=== PATIENT | female | born 1965 | race Caucasian/White ===

== ENCOUNTER 2023-11-03 22:58 | Emergency (ER) | payer OTHER, SELFPAY ==
[2023-11-03 23:00] VITALS: BP 148/103; PULSE 92; RESP 20; TEMP 36.1; O2SAT 96
[2023-11-04 02:46] VITALS: BP 133/92; PULSE 89; RESP 18; TEMP 37; O2SAT 97
--- NOTE | 2023-11-04 03:20 | ED.ANIMALBIT ---
HPI - Animal Bite General Chief Complaint: Animal Bite Stated Complaint: dog bite Time Seen by Provider: 11/04/23 03:12 History of Present Illness HPI narrative: Patient is a 58-year-old female who presents to the emergency department this evening complaining of a dog bite to her right forearm. Patient admits that the dog is her dog and he is up-to-date with all immunizations. Patient initially stated that she was up-to-date with her tetanus shot but now cannot remember when her last tetanus shot was. She denies any fevers or chills at home and denies any additional injuries. Wound is superficial with multiple skin tears and abrasions, no deep wounds. No additional symptoms or concerns at this time. Related Data Allergies Allergy/AdvReac Type Severity Reaction Status Date / Time ibuprofen [From Motrin] Allergy Unknown Verified 11/03/23 23:00 Sulfa (Sulfonamide Allergy Unknown Verified 11/03/23 23:00 Antibiotics) Review of Systems Review of Systems: All systems are reviewed and are negative unless stated otherwise in the HPI. Exam Narrative: General: Alert, awake, afebrile, in no acute distress. HEENT: PERRL, no rhinorrhea, no post nasal drip, oropharynx clear. Cardiovascular: Regular rate and rhythm, no murmurs, rubs or gallops, no peripheral edema. Respiratory: Clear to auscultation bilaterally, no tachypnea, no wheezing, no rhonchi, no rubs, no respiratory distress. Abdomen: Soft, nontender, nondistended, no rebound, no guarding, no peritoneal signs. Musculoskeletal: No joint swelling or deformity, normal muscle tone. Skin: Multiple skin tears and abrasions to right forearm, all superficial, no active bleeding. Neurological: Alert and oriented to person, place, and time. Follows all commands. No focal deficits, speech is clear and fluent. Course Vital Signs Vital signs: Vital Signs Temperature 97 F L 11/03/23 23:00 Pulse Rate 92 11/03/23 23:00 Respiratory Rate 20 11/03/23 23:00 Blood Pressure 148/103 H 11/03/23 23:00 Pulse Oximetry 96 11/03/23 23:00 Temperature 98.6 F 11/04/23 02:46 Pulse Rate 89 11/04/23 02:46 Respiratory Rate 18 07/09/24 02:46 Blood Pressure 133/92 H 11/04/23 02:46 Pulse Oximetry 97 11/04/23 02:46 Oxygen Delivery Room Air 11/04/23 02:46 MDM - Animal Bite MDM Narrative Medical decision making narrative: The patient was evaluated by myself in the emergency department. History is obtained from patient who is an independent historian and physical exam was performed. External medical records were reviewed at this time. Patient's wound was irrigated and dressed. Patient was administered a Td booster, 4 mg of IM morphine for pain, ODT Zofran for nausea and her 1st dose of Augmentin. Differential diagnosis considerations include dog bite, lacerations, abrasions, retained foreign bodies. Comorbidities impacting this visit include none. I have evaluated and discussed social determinants of health with the patient that could potentially impact subsequent diagnosis and treatment plans. On repeat assessment of the patient, reevaluation revealed that the patient is doing well and is in no acute distress. Patient symptoms have improved since she arrived to our emergency department. Repeat vital signs were all reviewed and noted to be stable. Differential diagnosis and treatment plan were discussed with the patient at bedside. Patient agrees with discussion and after shared medical decision making agrees with discharge. All questions were answered to the patient's satisfaction. Patient will follow up with her in 3-5 days. A script for Augmentin was sent to her pharmacy and she was instructed to take as prescribed. Patient was provided with strict return precautions and instructed to return to the emergency department if any new or worsening symptoms develop. The patient was discharged in stable condition. Discharge Plan Discharge Clinical
[2023-11-04] MEDS: AMOXICILLIN/CLAVULANATE K 875-125 MG TAB 1 TABLET PO (03:25)
[2023-11-04] MEDS: MORPHINE SULFATE (*CRX) 4 MG/ML INJ IM (03:26)
[2023-11-04] MEDS: TETANUS,DIPHTHERIA,AC PERTUSSIS ADULT (0.5 ML) BOOSTRIX IM (03:36)
== END 2023-11-04 03:51 | disposition home or self-care (01) ==
PROVIDERS: Emergency Provider Emergency Medicine
DX: S51.851A Open bite of right forearm, initial encounter (principal); W54.0XXA Bitten by dog, initial encounter; Z23 Encounter for immunization
CPT/HCPCS: 90471; 90715; 96372; 99283; A9270; J2270